=== PATIENT | female | born 1985 | race Caucasian/White ===

== ENCOUNTER → 2023-06-20 09:13 | Outpatient (REF) | payer BC, SELFPAY | LOC: WOUND 09:13 | PROVIDERS: ATTENDING PHYSICIAN Surgery; REFERRING PHYSICIAN Nurse Practitioner | DX: L97.811 Non-pressure chronic ulcer of other part of right lower leg limited to breakdown of skin (principal); L03.115 Cellulitis of right lower limb; I87.2 Venous insufficiency (chronic) (peripheral); I73.9 Peripheral vascular disease, unspecified | CPT/HCPCS: 97597 ==

== ENCOUNTER → 2024-11-08 08:14 | Outpatient (REF) | payer BC, SELFPAY | LOC: PAVMRI 08:14 | PROVIDERS: ATTENDING PHYSICIAN Physician Assistant; FAMILY PHYSICIAN Nurse Practitioner | DX: M25.512 Pain in left shoulder (principal) | CPT/HCPCS: 73221 ==